=== PATIENT | female | born 1995 | race Caucasian/White ===

== ENCOUNTER 2017-04-14 03:05 | Emergency (ER) | payer BC ==
[~2017-04-14] VITALS: Ht 152.4 cm; Wt 56.7 kg
[2017-04-14] MEDS ORDERED: GUAIFENESIN/D-METHORPHAN HB 5 ML UDC PO ONE (04:30)
--- NOTE | 2017-04-14 04:30 | NUR ---
PT BIBSELF AMBULATORY TO ER BED 5; C/O COUGH & CONGESTION X 2 WEEKS; PRODUCTIVE COUGH - PT STATES "GREEN MUCOUS". PT PLACED IN GOWN AND DEVELOPMENT ADMINISTRATOR. PT VSS/RESP EVEN UNLABORED/NAD NOTED/SKIN WARM AND DRY/DENIES N-V-D/AOX4. AWAITING MD BORDEN.
--- NOTE | 2017-04-14 04:32 | NUR ---
XRAY AT BEDSIDE PER MD ORDERS.
[2017-04-14] MEDS ORDERED: GUAIFENESIN/D-METHORPHAN HB 5 ML UDC ONE (05:05)
--- NOTE | 2017-04-14 05:19 | NUR ---
Patient discharged to home in stable condition. Written and verbal after care instructions given. Patient verbalizes understanding of instruction. Pt ambulatory with a steady gait.
[2017-04-14 05:20] VITALS: BP 117/69
== END 2017-04-14 05:49 | disposition home or self-care (01) ==
LOC: ER 03:07
DX: J06.9 Acute upper respiratory infection, unspecified (principal)
CPT/HCPCS: 71010; 99283; A4606; Z7610